=== PATIENT | male | born 1945 | race Caucasian/White ===

== ENCOUNTER 2018-08-18 19:40 | Outpatient (REF) | payer BC, SELFPAY ==
[2018-08-18 20:09] LABS: Anion Gap 9.2 mmol/L (3-11); BUN 14 mg/dL (7-18); CO2 29.8 mmol/L (21.0-32.0); CREATININE 1.19 mg/dL (0.70-1.30); Calcium 9.2 mg/dL (8.5-10.1); Chloride 102 mmol/L (98-107); Glucose 100 mg/dL (70-100); Potassium 3.6 mmol/L (3.5-5.1); Sodium 141 mmol/L (136-145)
== END 2018-08-18 20:00 ==
LOC: NCHCN 19:40
PROVIDERS: PCP Physician Assistant Medical; Visit Provider Physician Assistant Medical
DX: I10 Essential (primary) hypertension (principal)
CPT/HCPCS: 80048

== ENCOUNTER 2019-03-24 15:55 | Outpatient (REF) | payer BC, SELFPAY ==
[2019-03-24 19:05] LABS: BUN 12 mg/dL (7-18); Calcium 8.7 mg/dL (8.5-10.1); Chloride 101 mmol/L (98-107); Estimated GFR 59.68 (mL/min/1.73m2); Glucose 101 mg/dL (70-100); Potassium 3.6 mmol/L (3.5-5.1); Sodium 140 mmol/L (136-145); TSH 3.47 uIU/mL (0.36-3.74)
== END 2019-03-24 16:15 ==
LOC: NCHCN 15:55
PROVIDERS: PCP Physician Assistant Medical; Visit Provider Nurse Practitioner Family
DX: R42 Dizziness and giddiness (principal)
CPT/HCPCS: 80048; 84443

== ENCOUNTER 2021-01-04 20:34 | Outpatient (REF) | payer MEDICARE, BC, SELFPAY ==
[2021-01-04 20:33] LABS: ALT 50 U/L (16-63); AST 26 U/L (15-37); Albumin 4.5 g/dL (3.4-5.0); Alkaline Phosphatase 87 U/L (46-116); Anion Gap 9.2 mmol/L (3-11); BUN 21 mg/dL (7-18); Bilirubin, Total 1.2 mg/dL (0.2-1.0); CO2 30.8 mmol/L (21.0-32.0); CREATININE 1.3 mg/dL (0.70-1.30); Calcium 9.2 mg/dL (8.5-10.1); Calculated LDL 58 mg/dL (<100); Chloride 101 mmol/L (98-107); Cholesterol 150 mg/dL (<200); Estimated GFR 54.11 (mL/min/1.73m2); Glucose 92 mg/dL (74-106); HDL Cholesterol 63 mg/dL (40-60); Potassium 3.7 mmol/L (3.5-5.1); Sodium 141 mmol/L (136-145); Triglyceride 147 mg/dL (<150)
== END 2021-01-04 20:35 | disposition home or self-care (01) ==
LOC: NCHCN 20:34
PROVIDERS: PCP Physician Assistant Medical; Visit Provider Nurse Practitioner Family
DX: E78.5 Hyperlipidemia, unspecified (principal); I10 Essential (primary) hypertension
CPT/HCPCS: 80053; 80061

== ENCOUNTER 2022-01-02 09:08 | Outpatient (REF) | payer MEDICARE, SELFPAY ==
[2022-01-02 20:26] LABS: ALT 44 U/L (16-63); AST 28 U/L (15-37); Albumin 4.4 g/dL (3.4-5.0); Alkaline Phosphatase 89 U/L (46-116); Anion Gap 8.6 mmol/L (3-11); BUN 15 mg/dL (7-18); CO2 30.4 mmol/L (21.0-32.0); CREATININE 1.2 mg/dL (0.70-1.30); Calcium 8.9 mg/dL (8.5-10.1); Chloride 102 mmol/L (98-107); Estimated GFR 59.18 (mL/min/1.73m2); Glucose 99 mg/dL (74-106); Potassium 3.6 mmol/L (3.5-5.1); Sodium 141 mmol/L (136-145); Total Protein 7.6 g/dL (6.4-8.2)
[2022-01-04 08:59] LABS: Hepatitis C Ab w Rflx HCV PCR Negative (Negative)
== END 2022-01-02 09:09 | disposition home or self-care (01) ==
LOC: NCHCN 09:08
PROVIDERS: PCP Physician Assistant Medical; Visit Provider Nurse Practitioner Family
DX: I10 Essential (primary) hypertension (principal); E78.5 Hyperlipidemia, unspecified; Z11.59 Encounter for screening for other viral diseases
CPT/HCPCS: 80053; 86803

== ENCOUNTER 2023-05-20 17:54 | Outpatient (REF) | payer MEDICARE, SELFPAY ==
[2023-05-20 19:25] LABS: ALT 40 U/L (16-63); AST 30 U/L (15-37); Albumin 4.4 g/dL (3.4-5.0); Alkaline Phosphatase 94 U/L (46-116); Anion Gap 7.4 mmol/L (3-11); BUN 23 mg/dL (7-18); Bilirubin, Total 1.2 mg/dL (0.2-1.0); CO2 31.6 mmol/L (21.0-32.0); CREATININE 1.3 mg/dL (0.70-1.30); Calcium 9.9 mg/dL (8.5-10.1); Calculated LDL 87 mg/dL (<100); Chloride 102 mmol/L (98-107); Cholesterol 177 mg/dL (<200); Estimated GFR 57.29 (mL/min/1.73m2); Glucose 110 mg/dL (74-106); HDL Cholesterol 65 mg/dL (40-60); Potassium 4.8 mmol/L (3.5-5.1); Sodium 141 mmol/L (136-145); Total Protein 8.5 g/dL (6.4-8.2); Triglyceride 125 mg/dL (<150)
== END 2023-05-20 17:55 | disposition home or self-care (01) ==
LOC: NCHCN 17:54
PROVIDERS: PCP Physician Assistant Medical; Visit Provider Nurse Practitioner Family
DX: E78.5 Hyperlipidemia, unspecified (principal); I10 Essential (primary) hypertension
CPT/HCPCS: 80053; 80061

== ENCOUNTER 2023-08-05 13:58 | Outpatient (REF) | payer MEDICARE, SELFPAY ==
[2023-08-05 19:16] LABS: Hemoglobin A1C 5.4 % (<5.7)
[2023-08-05 19:20] LABS: ALT 49 U/L (16-63); AST 32 U/L (15-37); Albumin 4.5 g/dL (3.4-5.0); Alkaline Phosphatase 81 U/L (46-116); Anion Gap 9.9 mmol/L (3-11); BUN 18 mg/dL (7-18); Bilirubin, Total 1.1 mg/dL (0.2-1.0); CO2 30.1 mmol/L (21.0-32.0); CREATININE 1.2 mg/dL (0.70-1.30); Calcium 9.9 mg/dL (8.5-10.1); Chloride 100 mmol/L (98-107); Estimated GFR 63.07 (mL/min/1.73m2); Glucose 95 mg/dL (74-106); Potassium 3.7 mmol/L (3.5-5.1); Sodium 140 mmol/L (136-145); Total Protein 8.6 g/dL (6.4-8.2)
[2023-08-05 19:35] LABS: Bilirubin, Direct 0.2 mg/dL (0.0-0.2)
== END 2023-08-05 13:59 | disposition home or self-care (01) ==
LOC: NCHCN 13:58
PROVIDERS: PCP Physician Assistant Medical; Visit Provider Nurse Practitioner Family
DX: R74.8 Abnormal levels of other serum enzymes (principal); R73.9 Hyperglycemia, unspecified
CPT/HCPCS: 80048; 80076; 83036

== ENCOUNTER 2023-08-08 10:34 | Outpatient (REF) | payer MEDICARE, SELFPAY ==
[2023-08-08 18:45] LABS: HCT 49.8 % (40.0-50.0); HGB 16.3 g/dL (13.5-17.5); MCH 30.5 pg (27.0-33.0); MCHC 32.7 % (32.0-36.0); MCV 93 fL (80-95); MPV 10.7 fL (8.0-11.0); Platelet Count 239 10^3/uL (130-400); RBC 5.35 10^6/uL (4.36-5.78); RDW 12.7 % (11.8-14.1); WBC 7.37 10^3/uL (4.4-10.8)
[2023-08-12 13:43] LABS: Albumin 56.6 % (55.8-66.1); Albumin g/dL 4.8 g/dL (3.6-5.2); Total Protein 8.4 g/dL (6.3-8.2)
== END 2023-08-08 10:35 | disposition home or self-care (01) ==
LOC: NCHCN 10:34
PROVIDERS: Nurse Practitioner Family; PCP Physician Assistant Medical; Visit Provider Internal Medicine
DX: R74.8 Abnormal levels of other serum enzymes (principal)
CPT/HCPCS: 85027; 84165

== ENCOUNTER 2024-07-07 08:44 | Outpatient (REF) | payer MEDICARE, SELFPAY ==
--- OUTSIDE RECORDS SUMMARY | 2024-07-07 08:47 | XMS_ITS | Encounter Summary ---
Author Organization [facility] Address [address] [place] [address] Care Team Providers Care Parking Lot Signaler Name Role Phone Joceline Vale MD Primary Care Provider [phone] Encounter Details Date Type Department Care Team (Late st Contact Info) Description 08/09/2023 Lab Requisition [facility] Pathology & Laboratory Medicine - [address] [id number] Outr Resulting Lab, Provider Social History Tobacco Use Types Packs/Day Years Used Date Smoking Tobacco: Never Assessed Sex and Gender Information Value Date Recorded Sex Assigned at Not on file Legal Sex Male 17:31 EST Gender Identity Not on file Sexual Orientation Not on file documented as of this encounter Plan of Treatment Not on file documented as of this encounter Procedures Procedure Name Priority Date/Time Associated Diagnosis Comments SPEP, INCLUDES QUANTITATION OF MONOCLONAL SPIKE PERFORMABLE Today 08/08/2023 8:08 EST SPEP, INCLUDES QUANTITATION OF MONOCLONAL SPIKE Routine 08/08/2023 8:08 EST PROTEIN, TOTAL Today 08/08/2023 8:08 EST documented in this encounter Results * (ABNORMAL) SPEP, INCLUDES QUANTITATION OF MONOCLONAL SPIKE PERFORMABLE (08/08/2023 8:08 EST) Albumin % 56.6 55.8 - 66.1 % 08/12/2023 13:[address] [facility] Albumin g/dL 4.8 3.6 - 5.2 g/dL 08/12/2023 13:38 [facility] Alpha-1 % 4.2 2.9 - 4.9 % 08/12/2023 13:38 [facility] Alpha-1 g/dL 0.40 0.15 - 0.40 g/dL 08/12/2023 13:38 [facility] Alpha-2 % 11.5 7.1 - 11.8 % 08/12/2023 13:38 [facility] Alpha-2 g/dL 1.00 0.50 - 1.00 g/dL 08/12/2023 13:38 [facility] Beta % 16.6(H) 8.4 - 13.1 % 08/12/2023 13:38 [facility] Beta g/dL 1.40(H) 0.60 - 1.20 g/dL 08/12/2023 13:38 [facility] Gamma % 11.1 11.1 - 18.8 % 08/12/2023 13:38 [facility] Gamma g/dL 0.90 0.60 - 1.60 g/dL 08/12/2023 13:38 [facility] SPEP Comment No apparent monoclonal protein seen on serum electrophoresis 08/12/2023 13:38 [facility] Comment:See scanned/suppleme ntary report. Total Protein 8.4(H) 6.3 - 8.2 g/dL 08/12/2023 13:38 [facility] Blood VENOUS BLOOD / Unknown 08/08/2023 8:08 EST 08/09/2023 17:42 EST us Provider Outr Resulting Lab CHEMISTRY & BLOOD GA S ORDERABLES Final Result [facility] [address] [place] [address] * PROTEIN, TOTAL (08/08/2023 8:08 EST) Blood VENOUS BLOOD / Unknown 08/08/2023 8:08 EST 08/09/2023 17:42 EST us Provider Outr Resulting Lab CHEMISTRY & BLOOD GA S ORDERABLES Final Result [facility] [address] [place] [address] documented in this encounter Visit Diagnoses Not on filedocumented in this encounter Care Teams Parking Lot Signaler Relationship Specialty Start Date End Date Joceline Vale MD PCP - General 07/07/15 documented as of this encounter
--- OUTSIDE RECORDS SUMMARY | 2024-07-07 08:47 | XMS_ITS | Clinical Summary ---
Author Organization [facility] Address [facility] [place] [address] Care Team Providers Care Digital Sales Manager Name Role Phone Jim Eden MD Primary Care Provider [phone] Allergies No known active allergies Encounters Date Type Department Care Team Description 06/24/2024 4:50 PM EST Telehealth [place] [address] Telehealth, Neurology 06/24/2024 3:25 PM EST Ancillary Procedure Radiology Library at [facility] [place] [address] Jim Eden MD 06/24/2024 Interpretation Only Radiology [facility] at [facility] [place] [address] Jim Eden MD 06/23/2024 9:45 PM EST Ancillary Procedure Radiology [facility] at [facility] [place] [address] Jim Eden MD 06/23/2024 9:40 PM EST Ancillary Procedure Radiology Library [place] [facility] [place] [address] Jim Eden MD 06/23/2024 7:35 PM EST Telehealth [place] [address] Telehealth, Neurology from Last 3 Months Social History Tobacco Use Types Packs/Day Years Used Date Smoking Tobacco: Never Assessed Sex and Gender Information Value Date Recorded Sex Assigned at Not on file Gender Identity Not on file Sexual Orientation Not on file Plan of Treatment Health Maintenance Due Date Last Done Comments Hepatitis C Screening 12/07/1965 Tetanus/Diphtheria/Pertussis Vaccines (1 - Tdap) 12/07/1966 Zoster vaccine (1 of 2) 12/07/1997 Advance Directive 12/07/2002 Pneumoccocal Vaccine: 65+ (1 of 1 - PCV) 12/07/2012 RSV Vaccine (1 - 1-dose 75+ series) 12/07/2022 Covid-19 Vaccine (3 - season) 2024, 05/23/2022 Influenza (Flu) vaccine (1 o f 1 - Influenza standard series) 03/22/2024 Procedures Procedure Name Priority Date/Time Associated Diagnosis Comments FILM LIBRARY STORAGE ONLY MR HEAD Routine 06/24/2024 3:25 PM EST FILM LIBRARY STORAGE ONLY CT HEAD AND SPINE Routine 06/23/2024 9:40 PM EST FILM LIBRARY STORAGE ONLY CT HEAD Routine 06/23/2024 9:39 PM EST from Last 3 Months Results * Film Library- Storage Only MR Head (06/24/2024 3:25 PM EST) 06/28/2024 1:56 AM EST Narrative [facility] - 06/28/2024 1:56 AM EST This exam is auto-finalizing. It's purpose is for storage only. Jim Eden MD [facility] FILM LIBRARY ORD ERABLES Performing Organization Address [facility] de Phone Number [place], [place] * Film Library- Storage Only CT Head And Spine (06/23/2024 9:40 PM EST) Narrative [facility] - 06/23/2024 9:40 PM EST This exam is auto-finalizing. It's purpose is for storage only. Jim Eden MD [facility] FILM LIBRARY ORD ERABLES Performing Organization Address [facility] de Phone Number [place], [place] * Film Library- Storage Only CT Head (06/23/2024 9:39 PM EST) Narrative [facility] - 06/23/2024 9:39 PM EST This exam is auto-finalizing. It's purpose is for storage only. Jim Eden MD IMG FILM LIBRARY ORD ERABLES [facility] [place], [place] from Last 3 Months Care Teams Digital Sales Manager Relationship Specialty Start Date End Date Jim Eden MD [address] [address] PCP - General 06/13/10
--- OUTSIDE RECORDS SUMMARY | 2024-07-07 08:47 | XMS_ITS | Encounter Summary ---
Author Organization [facility] [place] [address] Care Team Providers Care Anodiser Name Role Phone Jim Eden MD Primary Care Provider [phone] Encounter Details Date Type Department Care Team (Late st Contact Info) Description 06/23/2024 7:35 PM EST Telehealth [place] [id number] Telehealth, Neurology None Social History Tobacco Use Types Packs/Day Years Used Date Smoking Tobacco: Never Assessed Sex and Gender Information Value Date Recorded Sex Assigned at Not on file Gender Identity Not on file Sexual Orientation Not on file documented as of this encounter Miscellaneous Notes * Consult Note - Rajwinder Maldonado MD - 06/23/2024 7:35 PM EST [facility] EMERGENT TELENEUROLOGY CONSULT NOTE - phone only consultation Date 06/23/24 Patient: Dusty Barragan : 1945 Gender: male VISIT Requesting Location: [facility] ([facility] Requesting Physician: Dr. Disla Diagnosis/Reason for Consult: AIS TLKW >24 hours (Note: not a tPA or thrombectomy candidate) Arrival Date: 06/23/2024 Arrival Time: 4:37 PM Consult Request Time: 5:40 PM Start Time of Video Consult: Phone call started 5:45 PM Time Last Known Well: 3 days ago PROVIDER History: 78-year-old reportedly healthy man with no vascular risk factor who presents to the emergency room reporting persistent vertigo and dizziness over the past 48 hours that started gradually are triggered with head movement and affecting his balance. He reports improvement of the symptoms when he stays still without movement. He denies severe nausea or vomiting. He was given meclizine earlier this morning by a friend but is unsure if it helped him. At the emergency room head thrust shows overshooting of the eyes to the right when turning the head to the left pointing towards left inner ear pathology however he also had vertical up beating rotational nystagmus. His vital signs were stab le. 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 Past Medical History: No past medical history on file. Current Medications: No current outpatient medications on file. Allergies: No Known Allergies Neurologic Social History: Are you a current smoker or have you ever smoked: N/A Do you consume alcohol: N/A Vitals: Pulse: N/A Blood pressure: N/A NIH STROKE SCALE reportedly 0, phone only consultation Additional Neurologic Examination Findings: Phone only consultation but patient had left head thrust positive test with vertical up beating nystagmus. Radiology Imaging Imaging/Results: Head CT scan showed no acute abnormality. 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 Labs: Glucose: N/A PT/INR: N/A Platelets: N/A CLINICAL IMPRESSION/DIAGNOSIS: Patient's presentation is concerning for pontine or cerebellar stroke specially with a gradually worsening symptoms, absence of severe nausea, and vertical up beating rotational nystagmus. The fact that the vertigo improved when patient avoids movement argues towards central etiology versus peripheral in cases such as vestibular neuritis. It seems that the patient responded to some supportive treatment today and head CT scan showed no acute abnormality. 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 RECOMMENDATIONS/PLAN: Pending brain MRI without contrast. Load with aspirin 325 mg p.o. today awaiting for the results of the MRI. OBSERVATION/ADMISSION/TRANSFER: Admission for stroke workup and management Rajwinder Maldonado MD [facility] Tele[facility]urology documented in this encounter Plan of Treatment Not on file documented as of this encounter Visit Diagnoses Not on filedocumented in this encounter Care Teams Anodiser Relationship Specialty Start Date End Date Jim Eden MD [address] [place] [id number] PCP - General 06/13/10 documented as of this encounter
--- OUTSIDE RECORDS SUMMARY | 2024-07-07 08:47 | XMS_ITS | Encounter Summary ---
Author Organization [facility] Address [address] [place] [address] Care Team Providers Care Mobile Home Set Up Person Name Role Phone Unknown, Provider MD Primary Care Provider Unava ilable Encounter Details Date Type Department Care Team (Late st Contact Info) Description 07/04/2015 Results Only [facility] [phone] Gama Gamble MD [address] [place] [address] Social History Tobacco Use Types Packs/Day Years [...] Procedure Name Priority Date/Time Associated Diagnosis Comments SURGICAL PATHOLOGY Routine 07/04/2015 9:27 EST documented in this encounter Results * SURGICAL PATHOLOGY (07/04/2015 9:27 EST) Pathology Report: SURGICAL PATHOLOGY REPORT Reports generated via electronic interface contain original data; however they are lacking the format of the original report. Caution should be taken when reading/interpret ing unformatted reports. Name: ? YUNG DUSTY ? Accession #: ? [id number] ? : ? 1945 (Age: 69) ??M ? Collect Date: ? 07/04/2015 ? Location: ? [facility] ? Receive Date: ? 07/05/2015 ? Provider: GAMA GAMBLE MD Copy to: DENISE FOSTER MD ? Final Pathologic Diagnosis: GALLBLADDER, CHOLECYSTECTOMY: - ??Acute on chronic cholecystitis. See comment. - ??Scant cauterized benign liver bed - ??Cholelithiasis. 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 Document reviewed and electronically signed by: ANA ROSA PURDY MD Report ??Date: 07/10/2015 13:18 By the signature above, the attending physician certifies that he/she has personally conducted a gross and/or microscopic examination of the described specimens and rendered or confirmed the above diagnosis. Specimen(s) Received: Gallbladder Clinical History: Not listed Gross Description: ? Received in formalin labelled with proper patient identification (initials B, J) and gallbladder is a previously dissected gallbladder (10.8 x 3.8 x 2.9 cm) with a segment of cystic duct (0.5 cm in length x 0.2 cm in diameter). ? The serosa is lancaster-purple and focally hemorrhagic. The mucosa is lancaster-purple, denuded, firm, and focally hemorrhagic. The wall averages 0.4 cm in thickness. The cystic duct lumen is not patent. The cystic duct margin is inked blue. A single yellow-brown, smooth, ovoid cholelith (3.5 x 2.4 x 2.1 cm) is present. ? Two videotape sales representative sections and the inked en face cystic duct margin are submitted in 1. Dr. Castillo 07/05/2015 2:09 PM End of Report [facility] 07/04/2015 9:27 EST 07/05/2015 9:27 EST us Gama Gamble MD PATHOLOGY ORDERABLES Final Result [facility] [address] [place] [address] documented in this encounter Visit Diagnoses Not on filedocumented in this encounter Care Teams Mobile Home Set Up Person Relationship Specialty Start Date End Date Unknown, Provider, PCP - General 07/04/15 07/06/15 documented as of this encounter
--- OUTSIDE RECORDS SUMMARY | 2024-07-07 08:47 | XMS_ITS | Referral Summary ---
Author Organization [facility] Address [address] [place] [address] Care Team Providers Care Java Spring Developer Name Role Phone Joceline Vale MD Primary Care Provider [phone] Social History Tobacco Use Types Packs/Day Years Used Date Smoking Tobacco: Never Assessed Sex and Gender Information Value Date Recorded Sex Assigned at Not on file Legal Sex Male 17:31 EST Gender Identity Not on file Sexual Orientation Not on file Plan of Treatment Not on file Procedures Procedure Name Priority Date/Time Associated Diagnosis Comments HEPATITIS C AB W REFLEX TO HCV RNA BY PCR Routine 01/02/2022 8:45 EDT from Last 3 Months or Most Recently Relevant to Health Maintenance Results * HEPATITIS C AB W REFLEX TO HCV RNA BY PCR (01/02/2022 8:45 EDT) Hep C Antibody Negative Negative 01/04/2022 8:53 EDT [facility] Blood VENOUS BLOOD / Unknown 01/02/2022 8:45 EDT 01/03/2022 16:24 EDT us Provider Outr Resulting Lab CHEMISTRY & BLOOD GA S ORDERABLES Final Result [facility] [address] [place] [address] from Last 3 Months or Most Recently Relevant to Health Maintenance Care Teams Java Spring Developer Relationship Specialty Start Date End Date Joceline Vale MD PCP - General 07/07/15
--- OUTSIDE RECORDS SUMMARY | 2024-07-07 08:47 | XMS_ITS | Clinical Summary ---
Author Organization [facility] Address [address] [place] [address] Care Team Providers Care Dictating Transcribing Machine Servicer Name Role Phone Joceline Vale MD Primary Care Provider +1- [phone] Social History Tobacco Use Types Packs/Day Years Used Date Smoking Tobacco: Never Assessed Sex and Gender Information Value Date Recorded Sex Assigned at Not on file Legal Sex Male 17:31 EST Gender Identity Not on file Sexual Orientation Not on file Plan of Treatment Health Maintenance Due Date Last Done Comments Fall Risk Screening 12/07/2012 RSV Immunization ( o r 60+ Years) (1 - 1-dose 75+ series) 12/07/2022 COVID-19 Vaccine ( season) 2024 Hepatitis C Screen Completed 01/02/2022 Procedures Procedure Name Priority Date/Time Associated Diagnosis Comments HEPATITIS C AB W REFLEX TO HCV RNA BY PCR Routine 01/02/2022 8:45 EDT from Last 3 Months or Most Recently Relevant to Health Maintenance Results * HEPATITIS C AB W REFLEX TO HCV RNA BY PCR (01/02/2022 8:45 EDT) Hep C Antibody Negative Negative 01/04/2022 8:53 EDT [facility] Blood VENOUS BLOOD / Unknown 01/02/2022 8:45 EDT 01/03/2022 16:24 EDT us Provider Outr Resulting Lab CHEMISTRY & BLOOD GA S ORDERABLES Final Result [facility] [address] [place] [id number] from Last 3 Months or Most Recently Relevant to Health Maintenance Care Teams Dictating Transcribing Machine Servicer Relationship Specialty Start Date End Date Joceline Vale MD PCP - General 07/07/15
--- OUTSIDE RECORDS SUMMARY | 2024-07-07 08:47 | XMS_ITS | Encounter Summary ---
Author Organization [facility] [place] [address] Care Team Providers Care Engineering Equipment Operator Name Role Phone Jim Eden MD Primary Care Provider Encounter Details Date Type Department Care Team (Late st Contact Info) Description 06/24/2024 3:25 PM EST Ancillary Procedure Radiology Library at [facility] [place] [id number] Jim Eden MD [address] [place] [id number] Social History Tobacco Use Types Packs/Day Years [...] MR HEAD Routine 06/24/2024 3:25 PM EST documented in this encounter Results * Film Library- Storage Only MR Head (06/24/2024 3:25 PM EST) 06/28/2024 1:56 AM EST Narrative [facility] 06/28/2024 1:56 AM EST This exam is auto-finalizing. It's purpose is for storage only. Jim Eden MD IMG FILM LIBRARY ORD ERABLES [facility] [place] documented in this encounter Visit Diagnoses Not on filedocumented in this encounter Care Teams Engineering Equipment Operator Relationship Specialty Start Date End Date Jim Eden MD [address] [place] [id number] PCP - General 06/13/10 documented as of this encounter
--- OUTSIDE RECORDS SUMMARY | 2024-07-07 08:47 | XMS_ITS | Data Portability ---
Author Organization [facility] Address [address] [place] [address] Care Team Providers Care Manager Home Healthcare Name Role Phone MIRNA SAENZ Primary Care Provider Assessment No assessment recorded. Plan of Treatment Reminders Order Date Submit Date Provider Last Modified By Organization Details Last Modified Time Details Appointments hospital follow up 2023 08:00A M MIRNA SAENZ Not available Not available Not available Lab BMP, serum or plasma [address] [facility] (Registration ), [address] [place] [address] [place], [address], 02/10/2024 11:45:43 HbA1c (hemoglob in A1c), blood [address] [facility] (Registration ), [address] [place] [address] [place], [address], 02/10/2024 11:46:04 hepatic function panel, serum 2023 024 DAILY [facility] (Registration ), [address] [place] [address] [place], [address], 08/05/2023 19:39:20 venipunct ure 2023 024 [email or web address] [facility] (Registration ), [address] [place] [address] [place], [address], 08/08/2023 13:28:34 Referral None recorded. Procedures None recorded. Surgeries None recorded. Imaging None recorded. Medication Orders tritex ne 37.5 mg-hydroc hlorothia zide 25 mg capsule 2023 024 [email or web address] [facility], [place], [address], 08/05/2023 10:07:51 amlodipin e 5 mg tablet 2023 024 DAILY [address], [address] [place], [address], 08/05/2023 10:07:54 simvastat in 20 mg tablet 2023 024 [email or web address] [address], [address] [facility], [place], [address], 06/25/2024 12:23:09 Patient TargetsNo targets recorded. Patient Instructions Encounter Date Encounter Id Patient Instructions Last Modified By Organization Details Last Modified Time 08/05/2023 [id number] Increase your Amlodipine to 5mg once daily, ok to take two 2.5 mg tablets at the same time until you get your new prescription. Goal bp is about 120/80. If your blood pressure continues to be elevated, please let me know I will send you a letter with the results of your lab work Not available 08/05/2023 09:51:31 08/08/2023 [id number] specimen collection & handling* [email or web address] Not available 08/08/2023 13:28:34 02/11/2024 [id number] Continue current medications, your blood pressure is well controlled. Follow up 6 months, sooner if needed Flu shot and COVID booster this fall. Lab work at your next visit Not available 02/11/2024 08:26:19 Reason for Referral Neurologist Referral for His tory of cerebrovascular accident Recent CVA, Dr. Maldonado of [facility] consulted from ER at [facility]. 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 Please make recommendations Referring Physician: Mirna Saenz, Family Medicine, Encounter Date: 07/07/2024 Results Created Date Observation Date Name Description Value Unit Range Abnormal Flag Note LastModifiedBy Organization Detail LastModifiedTime 08/05/19 24 08/05/2023 HEMOG LOBIN A1C hemoglobin A1C 5.4 % <5.7 Refer ence Range s <5.7 Justine l 5.7-6 .4% Predi abete s 6.5% or great er Diagn ostic for diabe haily (if confi rmed) Refer ences : 1. Ameri can Diabe haily [facility] iatio n. Clas sific ation and Diagn osis of Diabe haily. [facility]abe haily [facility] 2019 Jul; 2(Sup pleme nt 1):S1 3-s28 . Not Available [address] [place], [address] 08/05/2023 19:20:14 08/05/19 24 08/05/2023 LIVER PANEL total protein 8.6 g/dL 6.4-8. 2 high Not Available [address] [place], [address] 08/05/2023 19:39:20 08/05/19 24 08/05/2023 LIVER PANEL albumin 4.5 g/dL 3.4-5. 0 normal Not Available [address] [place], [address] 08/05/2023 19:39:20 08/05/19 24 08/05/2023 LIVER PANEL bilirubin, total 1.1 mg/dL 0.2-1. 0 high Not Available [address] [place], [address] 08/05/2023 19:39:20 08/05/19 24 08/05/2023 LIVER PANEL alk phos 81 U/L 46-116 normal Not Available [address] [place], [address] 08/05/2023 19:39:20 08/05/19 24 08/05/2023 LIVER PANEL AST 32 U/L 15-37 normal Not Available Pierre whittington [address] [place], [address] 08/05/2023 19:39:20 08/05/19 24 08/05/2023 LIVER PANEL ALT 49 U/L 16-63 normal Not Available [place] [address] [place], [address] 08/05/2023 19:39:20 08/05/19 24 08/05/2023 LIVER PANEL bilirubin, conjugated 0.2 mg/dL 0.0-0. 2 normal Not Available [address] [place], [address] 08/05/2023 19:39:20 08/05/19 24 08/05/2023 BASIC METAB OLIC PANEL calcium 9.9 mg/dL 8.5-10 .1 normal Not Available [address] [place], [address] 08/05/2023 19:39:20 08/05/19 24 08/05/2023 BASIC METAB OLIC PANEL glucose 95 mg/dL 74-106 normal Not Available Pierre wh[place] [address] [place], [address] 08/05/2023 19:39:20 08/05/19 24 08/05/2023 BASIC METAB OLIC PANEL BUN 18 mg/dL 7-18 normal Not Available Pierre wh[place] [address] [place], [address] 08/05/2023 19:39:20 08/05/19 24 08/05/2023 BASIC METAB OLIC PANEL creatinine 1.2 mg/dL 0.70-1 .30 normal Not Available [address] [place], [address] 08/05/2023 19:39:20 08/05/19 24 08/05/2023 BASIC METAB OLIC PANEL estimated GFR 63.07 mL/min /1.73m 2 The eGFR is calcu lated from a serum creat inine using the CKD-E PI 2020 equat ion. Other varia bles requi red for the equat ion are gende r and age; this equat ion does not inclu de a race coeff icien t. This equat ion has simil ar overa ll perfo rmanc e to previ ous equat ions excep t value s may diffe r, in parti cular , in patie nts with highe r value s of eGFR and young er-ag ed adult s. Not Available [address] [place], [address] 08/05/2023 19:39:20 08/05/19 24 08/05/2023 BASIC METAB OLIC PANEL sodium 140 mmol/ L 136-14 5 normal Not Available [address] [place], [address] 08/05/2023 19:39:20 08/05/19 24 08/05/2023 BASIC METAB OLIC PANEL potassium 3.7 mmol/ L 3.5-5. 1 normal Not Available [address] [place], [address] 08/05/2023 19:39:20 08/05/19 24 08/05/2023 BASIC METAB OLIC PANEL chloride 100 mmol/ L 98-107 normal Not Available [address] [place], [address] 08/05/2023 19:39:20 08/05/19 24 08/05/2023 BASIC METAB OLIC PANEL CO2 30.1 mmol/ L 21.0-3 2.0 normal Not Available [address] [place], [address] 08/05/2023 19:39:20 08/05/19 24 08/05/2023 BASIC METAB OLIC PANEL anion gap 9.9 mmol/ L 3-11 normal Not Available [address] [place], [address] 08/05/2023 19:39:20 08/08/19 24 08/08/2023 COMPL ETE BLOOD COUNT NO DIFF WBC 7.37 10_3/ uL 4.4-10 .8 normal Not Available [address] [place], [address] 08/08/2023 18:49:19 08/08/19 24 08/08/2023 COMPL ETE BLOOD COUNT NO DIFF RBC 5.35 10_6/ uL 4.36-5 .78 normal Not Available [address] [place], [address] 08/08/2023 18:49:19 08/08/19 24 08/08/2023 COMPL ETE BLOOD COUNT NO DIFF HGB 16.3 g/dL 13.5-1 7.5 normal Not Available [address] [place], [address] 08/08/2023 18:49:19 08/08/19 24 08/08/2023 COMPL ETE BLOOD COUNT NO DIFF HCT 49.8 % 40.0-5 0.0 normal Not Available [address] [place], [address] 08/08/2023 18:49:19 08/08/19 24 08/08/2023 COMPL ETE BLOOD COUNT NO DIFF MCV 93 fL 80-95 normal Not Available Pierre whitting[place] [address] [place], [address] 08/08/2023 18:49:19 08/08/19 24 08/08/2023 COMPL ETE BLOOD COUNT NO DIFF MCH 30.5 pg 27.0-3 3.0 normal Not Available [address] [place], [address] 08/08/2023 18:49:19 08/08/19 24 08/08/2023 COMPL ETE BLOOD COUNT NO DIFF MCHC 32.7 % 32.0-3 6.0 normal Not Available [address] [place], [address] 08/08/2023 18:49:19 08/08/19 24 08/08/2023 COMPL ETE BLOOD COUNT NO DIFF RDW 12.7 % 11.8-1 4.1 normal Not Available [address] [place], [address] 08/08/2023 18:49:19 08/08/19 24 08/08/2023 COMPL ETE BLOOD COUNT NO DIFF platelet count 239 10_3/ uL 130-40 0 normal Not Available [address] [place], [address] 08/08/2023 18:49:19 08/08/19 24 08/08/2023 COMPL ETE BLOOD COUNT NO DIFF MPV 10.7 fL 8.0-11 .0 normal Not Available [address] [place], [address] 08/08/2023 18:49:19 08/08/19 24 08/12/2023 ELECT ROPHO RESIS , SERUM total protein 8.4 g/dL 6.3-8. 2 abnormal Not Available [address] [place], [address] 08/12/2023 16:49:11 08/08/19 24 08/12/2023 ELECT ROPHO RESIS , SERUM albumin 56.6 % 55.8-6 6.1 Not Available [address] [place], [address] 08/12/2023 16:49:11 08/08/19 24 08/12/2023 ELECT ROPHO RESIS , SERUM alpha 1 4.2 % 2.9-4. 9 Not Available [address] [place], [address] 08/12/2023 16:49:11 08/08/19 24 08/12/2023 ELECT ROPHO RESIS , SERUM alpha 2 11.5 % 7.1-11 .8 Not Available [address] [place], [address] 08/12/2023 16:49:11 08/08/19 24 08/12/2023 ELECT ROPHO RESIS , SERUM beta 16.6 % 8.4-13 .1 abnormal Not Available [address] [place], [address] 08/12/2023 16:49:11 08/08/19 24 08/12/2023 ELECT ROPHO RESIS , SERUM gamma 11.1 % 11.1-1 8.8 Not Available [address] [place], [address] 08/12/2023 16:49:11 08/08/19 24 08/12/2023 ELECT ROPHO RESIS , SERUM comment SEE BELOW RESUL T: No appar ent monoc lonal prote in seen on serum elect ropho resis See scann ed/chin pplem entar y repor t. Test perfo rmed or refer red by [facility] [address] [place] [address] Not Available [address] [place], [address] 08/12/2023 16:49:11 08/08/19 24 08/12/2023 ELECT ROPHO RESIS , SERUM albumin g/dL 4.8 g/dL 3.6-5. 2 Not Available [address] [place], [address] 08/12/2023 16:49:11 08/08/19 24 08/12/2023 ELECT ROPHO RESIS , SERUM alpha 1 g/dL 0.40 g/dL 0.15-0 .40 Not Available [address] [place], [address] 08/12/2023 16:49:11 08/08/19 24 08/12/2023 ELECT ROPHO RESIS , SERUM alpha 2 g/dL 1.00 g/dL 0.50-1 .00 Not Available [address] [place], [address] 08/12/2023 16:49:11 08/08/19 24 08/12/2023 ELECT ROPHO RESIS , SERUM beta g/dL 1.40 g/dL 0.60-1 .20 abnormal Not Available [address] [place], [address] 08/12/2023 16:49:11 08/08/19 24 08/12/2023 ELECT ROPHO RESIS , SERUM gamma g/dL 0.90 g/dL 0.60-1 .60 Not Available [address] [place], [address] 08/12/2023 16:49:11 08/08/19 24 08/08/2023 speci men colle ction & handl ing* Specimen collection and handling performed today: Yes Not Available [facility] [address] [place] [address] [address], [place], [address], 08/08/2023 08:11:00 06/23/20 24 06/23/2024 CT brain /head strok e donavan col PROCED URE INFORM ATION: Exam: CT Head Withou t Contra st Exam date and time: 024 6:51 PM Age: 78 years old Clinic al indica tion: Stroke -like sympto ms; Additi onal info: Ataxia TECHNI QUE: Imagin g protoc ol: Comput ed tomogr aphy of the head withou t contra st. Radiat ion optimi zation : All CT scans at this facili ty use at least one of these dose optimi zation techni ques: automa candida exposu re contro l; mA and/or kV adjust ment per patien t size (inclu manisha target ed exams where dose is matche d to clinic al indica tion); or iterat saw recons tructi on. Other techni que: STROKE PROTOC OL was implem ented. COMPAR SON: No releva nt prior studie s availa ble. FINDIN GS: Brain: No intrac ranial mass, mass effect or midlin e shift. No acute intrac ranial hemorr radha. No CT eviden ce of acute cortic al brain infarc t. Mild decrea sed attenu ation in perive ntricu lar/ce ntrum semiov familia white matter . Cerebr al ventri cles: Ventri cles, cister ns, and sulci are normal in size for age. Parana keily sinuse s: Imaged parana keily sinuse s are normal ly aerate d. Mastoi d air cells: Mastoi d air cells are normal ly aerate d. Audito ry system : Middle ear spaces and ossicu lar chains have normal aerati on and appear ance. Orbita l caviti es: Imaged orbits and ocular globes are unrema rkable . Bones: No calvar ial fractu re or destru ctive proces s. Soft tissue s: No focal subcut aneous soft tissue swelli ng. Vascul ature: No concer urban asymme tric abnorm al MCA densit y. IMPRES ANTOINE: No acute or concer urban focal intrac ranial abnorm ality. ASSESS MENT: ASPECT S (Juan Pablo ta Stroke Progra m Early CT Score) is 10. Report signed by: Tamara loyd On 2023 19:14: 52 INTERFACE [facility] [address], [place], [address], 06/23/2024 19:16:41 06/23/20 24 06/23/2024 CT angio brain and neck ABNORM AL FINDIN G PROCED URE INFORM ATION: Exam: CTA Head With Contra st, Arteri ograph y Exam date and time: 6:55 PM Age: 78 years old Clinic al indica tion: Stroke -like sympto ms; Additi onal info: Ataxia TECHNI QUE: Imagin g protoc ol: Comput ed tomogr aphic angiog nidhi of the head with contra st. Exam focuse d on the arteri es. 3D render ing (Not superv ised by radiol ogist) : MIP and/or 3D recons tructe d images were create d by the techno logist . Radiat ion optimi zation : All CT scans at this facili ty use at least one of these dose optimi zation techni ques: automa candida exposu re contro l; mA and/or kV adjust ment per patien t size (inclu manisha target ed exams where dose is matche d to clinic al indica tion); or iterat saw recons tructi on. Contra st materi al: OMNIPA QUE 350; Contra st volume : 100 ml; Contra st route: INTRAV ENOUS (IV); COMPAR SON: CT HEAD STROKE PROTOC OL 6:51 PM FINDIN GS: ANTERI OR CIRCUL ATION: Right risk intern al caroti d artery : Intrac ranial segmen t is patent with no signif icant stenos is. No aneury sm. Right middle cerebr al artery : No occlus ion or signif icant stenos is. No aneury sm. Right anteri or cerebr al artery : No occlus ion or signif icant stenos is. No aneury sm. Left risk intern al caroti d artery : Intrac ranial segmen t is patent with no signif icant stenos is. No aneury sm. Left middle cerebr al artery : No occlus ion or signif icant stenos is. No aneury sm. Left anteri or cerebr al artery : Diminu tive left A1 segmen t. Normal calibe r left DINAH is suppli ed predom inantl y by an anteri or commun icatin g artery No occlus ion or signif icant stenos is. No aneury sm. TALENT ACQUISITION CONSULTANT IOR CIRCUL ATION: Right verteb ral artery : V4 segmen t eccent jacqueline athero sclero tic plaque result s in certai nly milder than 50% lumina l calibe r narrow ing No occlus ion or signif icant stenos is. No aneury sm. Left verteb ral artery : No enhanc ement of the left verteb ral artery from its cervic al origin to the verteb robasi lar juncti on. Basila r artery : Normal lumina l calibe r and solely suppli ed by the right verteb ral artery No occlus ion or signif icant stenos is. No aneury sm. Right regional sales associate ior cerebr al artery : No occlus ion or signif icant stenos is. No aneury sm. Left regional sales associate ior cerebr al artery : No occlus ion or signif icant stenos is. No aneury sm. Brain: Ventri cles, cister ns and sulci are symmet jacqueline. No intrac ranial mass, mass effect , or midlin e shift. No acute intrac ranial hemorr radha. Osseou s Struct ures: Bony struct ures show no acute fractu re or destru ctive proces s. Soft tissue s: No focal extrac ranial soft tissue swelli ng. IMPRES ANTOINE: Age indete rminat e left verteb ral artery occlus ion from its cervic al origin to the verteb robasi lar juncti on, with the regional sales associate ior fossa struct ures suppli ed by the normal right verteb ral artery No other intrac ranial large vessel arteri al occlus saw or stenot ic lesion and no eviden ce of [place] aneury sm or dural sinus thromb osis. ASPECT S (Juan Pablo ta Stroke Progra m Early CT Score) is 10. ====== ====== ====== ====== = PROCED URE INFORM ATION: Exam: CTA Neck With Contra st Exam date and time: 024 6:55 PM Age: 78 years old Clinic al indica tion: Stroke -like sympto ms; Additi onal info: Ataxia TECHNI QUE: Imagin g protoc ol: Comput ed tomogr aphic angiog nidhi of the neck with contra st. Exam focuse d on the cervic al segmen ts of the vascul ature. 3D render ing (Not superv ised by radiol ogist) : MIP and/or 3D recons tructe d images were create d by the techno alphonse . Radiat ion optimi zation : All CT scans at this facili ty use at least one of these dose optimi zation techni ques: automa candida exposu re contro l; mA and/or kV adjust ment per patien t size (inclu manisha target ed exams where dose is matche d to clinic al indica tion); or iterat saw recons tructi on. Contra st materi al: OMNIPA QUE 350; Contra st volume : 100 ml; Contra st route: INTRAV ENOUS (IV); COMPAR SON: CT HEAD STROKE PROTOC OL 024 6:51 PM FINDIN GS: Right common caroti d artery : No hemody namica lly signif icant stenos is. No dissec tion or occlus ion. Right risk intern al caroti d artery : Minima l right caroti d bulb plaque with no lumina l calibe r narrow ing No hemody namica lly signif icant stenos is of the extrac ranial segmen t. No dissec tion or occlus ion. Right sales consultant insurance al caroti d artery : No occlus ion or hemody namica lly signif icant stenos is of the origin . Left common caroti d artery : No hemody namica lly signif icant stenos is. No dissec tion or occlus ion. Left risk intern al caroti d artery : Minima l eccent jacqueline left caroti d bulb and proxim al left ICA plaque . Neglig ible lumina l calibe r narrow ing. No hemody namica lly signif icant stenos is of the extrac ranial segmen t. No dissec tion or occlus ion. Left sales consultant insurance al caroti d artery : No occlus ion or hemody namica lly signif icant stenos is of the origin . Right verteb ral artery : No high-g rade stenos is. No dissec tion or occlus ion. Left verteb ral artery : Occlus ion/no n enhanc ement of the left verteb ral artery from its origin to the skull base, indete rminat e chroni city. Soft tissue s: Paraph arynge al and regional sales associate ior nasoph arynx soft tissue s are symmet jacqueline. Paroti d and minor saliva ry glands are normal . Floor of mouth and tongue base soft tissue s are symmet jacqueline. Epiglo ttis and upper airway struct ures appear normal . Thyroi d gland shows no asymme try or mass Lung Apices : Imaged lung apices show no acute abnorm ality or eviden ce of a apical mass. Centri lobula r emphys henry change s are presen t diffus chinyere Osseou s struct ures: Bony struct ures show no acute fractu re or destru ctive proces s. Multi- level cervic al degene rative disc and articu lar pillar arthro cate is presen t. Hyoid bone and laryng eal cartil age struct ures appear normal . IMPRES ANTOINE: Age indete rminat e comple te occlus ion of the left verteb ral artery from its cervic al origin to the skull base level No hemody namica lly signif icant lesion of the cervic al caroti d or right cervic al verteb ral arteri es. REFERE NCES: NASCET CRITER IA. The degree of stenos is in the cervic al segmen t of the risk intern al caroti d artery is based on NASCET criter ia. Normal is no stenos is. Mild is less than 50% stenos is. Modera te is 50-69% stenos is. Severe is 70% to 99% stenos is. Total occlus ion is no detect able patent lumen. Report signed by: Tamara loyd On 2023 19:21: [address], [place], [address], 07/07/2024 07:31:53 06/24/20 24 06/24/2024 xr chest 1 view PROCED URE INFORM ATION: Exam: XR Chest Exam date and time: 7:41 AM Age: 78 years old Clinic al indica tion: Wheezi ng; Wheezi ng; Additi onal info: Wheezi ng, cough, increa sed wbc TECHNI QUE: Imagin g protoc ol: Radiol ogic exam of the chest. Views: 1 view. COMPAR SON: CT CTA HEAD/N FELICIA W/ AND/OR WO CONT 6:55 PM FINDIN GS: Limita tions: Portab le techni que. Lungs: Lucenc y and attenu ation of the lung markin gs in the upper lung zones. No acute lung infilt rates. Pleura l spaces : Unrema rkable . No pleura l effusi on. No pneumo thorax . Heart/ Medias tinum: Unrema rkable . No cardio megaly . Vascul ature: Uncoil ing of the thorac ic aorta. Diaphr agm: Mild tentin g of the right hemidi aphrag m. Bones/ joints : Unrema rkable . IMPRES ANTOINE: COPD. Prior CT demons trates modera te centri lobula r emphys henry. Report signed by: Beata Huerta On 2023 09:12: [address], [place], [address], 06/24/2024 09:12:40 06/24/20 24 06/24/2024 MRI brain w/o contr ast ABNORM AL FINDIN G PROCED URE INFORM ATION: Exam: MR Head Withou t Contra st Exam date and time: 3:21 PM Age: 78 years old Clinic al indica tion: Stroke like sympto ms TECHNI QUE: Imagin g protoc ol: Magnet ic resona nce imagin g of the head withou t contra st. COMPAR SON: CT CTA HEAD/N FELICIA W/ AND/OR WO CONT 6:55 PM FINDIN GS: Brain: Puncta te focus of diffus ion hyperi ntensi ty along the left regional sales associate olater al medull a (serie s 3, image 39). Small chroni c right villarreal radiat a lacuna r infarc t. Mild nonspe cific T2/FLA IR hyperi ntensi ties of the perive ntricu lar and deep subcor tical white matter , most likely second carol to chroni c small vessel ischem ic change . No intrac ranial hemorr radha or extra- axial fluid collec tion. No eviden ce of mass effect . Cerebr al ventri cles: Promin ence of the ventri cles and sulci, likely attrib uted to parenc hymal volume loss. Bones: Unrema rkable . Parana keily sinuse s: Normal as visual ized. No acute sinusi tis. Mastoi d air cells: No mastoi d effusi on. Orbita l caviti es: Unrema rkable . Vascul ature: Absenc e of T2 flow void within the inferi or to mid intrac ranial left verteb ral artery , compat ible with occlus ion as demons trated on prior CTA. Soft tissue s: Unrema rkable . IMPRES ANTOINE: 1. Findin gs concer urban for tiny acute infarc t of the left regional sales associate olater al medull a. 2. Absenc e of T2 flow void within the inferi or to mid intrac ranial left verteb ral artery , compat ible with occlus ion as demons trated on prior CTA. 3. Chroni c findin gs, as above. Report signed by: Edin Bazan On 2023 16:29: [address], [place], [address], 07/07/2024 07:33:30 06/24/20 24 06/24/2024 MRI brain w/o contr ast ABNORM AL ROLF G Addend um keke d by Edin Bazan MD on 4:31:2 4 PM EST: THIS REPORT CONTAI NS FINDIN GS THAT MAY BE CRITIC AL TO PATIEN T CARE. The findin gs were verbal ly commun icated via teleph one confer ence with CASSANDRA LYLE at 4:31 PM EST on . The findin gs were acknow ledged and unders tood. Initia l report create d on 4:29:3 2 PM EST: ====== ====== ====== ====== ====== ====== ====== ====== ====== ====== ===== PROCED URE INFORM ATION: Exam: MR Head Withou t Contra st Exam date and time: 3:21 PM Age: 78 years old Clinic al indica tion: Stroke like sympto ms TECHNI QUE: Imagin g protoc ol: Magnet ic resona nce imagin g of the head withou t contra st. COMPAR SON: CT CTA HEAD/N FELICIA W/ AND/OR WO CONT 024 6:55 PM ROLF GS: Brain: Puncta te focus of diffus ion hyperi ntensi ty along the left regional sales associate olater al medull a (serie s 3, image 39). Small chroni c right villarreal radiat a lacuna r infarc t. Mild nonspe cific T2/FLA IR hyperi ntensi ties of the perive ntricu lar and deep subcor tical white matter , most likely second carol to chroni c small vessel ischem ic change . No intrac ranial hemorr radha or extra- axial fluid collec tion. No eviden ce of mass effect . Cerebr al ventri cles: Promin ence of the ventri cles and sulci, likely attrib uted to parenc hymal volume loss. Bones: Unrema rkable . Parana keily sinuse s: Normal as visual ized. No acute sinusi tis. Mastoi d air cells: No mastoi d effusi on. Orbita l caviti es: Unrema rkable . Vascul ature: Absenc e of T2 flow void within the inferi or to mid intrac ranial left verteb ral artery , compat ible with occlus ion as demons trated on prior CTA. Soft tissue s: Unrema rkable . IMPRES ANTOINE: 1. Findin gs concer urban for tiny acute infarc t of the left regional sales associate olater al medull a. 2. Absenc e of T2 flow void within the inferi or to mid intrac ranial left verteb ral artery , compat ible with occlus ion as demons trated on prior CTA. 3. Chroni c rolf gs, as above. Report signed by: Edin Bazan On 2023 16:31: [address], [place], [address], 06/24/2024 16:33:05 06/25/20 24 06/24/2024 trans -thor acic echoc ardio gram (TTE) (PROC ) No observ ation record ed. [email or web address] [facility] [address], [place], [address], 07/07/2024 07:34:41 Result Notes None recorded. Problems Name Problem SNOMED Code Status Onset Date Resolution Date Notes Provider Name and Address Organization Details Recorded Time History of cerebrov ascular accident 653762262 Active 2023 Tiny acute infarct of the left posterio r lateral medulla. Occlusio n of inferior to mid intracra geneva left vertebra l artery 4 JOEY BECKFORD [address], [place], [address] , [facility] 4 07:40:20 Hypokale annette 92610605 Active 2023 JOEY BECKFORD [address], [place], [address] , [facility] 4 08:28:56 Acute kidney injury 96838715 Active [address], [place], [address] , [facility] 4 08:29:10 Chronic obstruct saw pulmonar y disease 86237218 Active 2023 JOEY BECKFORD [address], [place], [address] , [facility] 4 08:29:24 Essentia l hyperten antoine 82195862 Active 200402/05/20 23 - Comments only - Mirna Saenz CONTROL SYSTEMS ENG - Slightly higher then last visit likely due to inadvert ent d/c of amlodipi ne. Our records show refills were sent, no cancella tion. 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 Problem Code: I10; Problem Code Type: ICD-10; Not Available [facility] 3 04:27:00 Hyperlip idemia 75387399 Active 201202/05/20 23 - Comments only - Mirna Saenz CONTROL SYSTEMS ENG - Unfortun ately, simvasta tin not refilled by pharmacy , despite rx availabl e per our records. New rx sent. Dusty will restart and have lab work done in one month. Recommen d continue active javier pepe Problem Code: E78.5; Problem Code Type: ICD-10; Not Available [facility] 3 04:27:01 Patient status finding 658671885 Active 201901/06/20 20 - Comments only - Sneha Albright CONTROL SYSTEMS ENG - Feeling well in general. No complain ts today. Refuses colonosc opy. I have encourag ed him to get a flu shot this fall. Check lipid panel, AST, ALT and BMP for hyperlip idemia and hyperten antoine. He is on a statin so will be get his liver enzymes. Follow-u p with any concerns . I would like to see him in 6 months for a hyperten antoine follow-u p. 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 Diplopia is intermit tent and per history and physical examinat ion there are no other findings concerni ng for central diplopia . Advised that Dusty follow up with his eye doctor within the week for a more comprehe nsive eye examinat ion. Discusse d with Dusty that he should f/u if diplopia changes or becomes persiste nt. Problem Code: H53.2; Problem Code Type: ICD-10; Not Available [facility] 3 04:27:01 Acute upper respirat ory infectio n 54171766 Completed 201706/13/2018 05/02/20 18 - Comments only - Iván Gardner PA-C - Suspect viral etiology . Recommen d symptoma tic care. Recheck if not improvin g in 1 more week. Sooner if worse. Possible postnasa l drip with cough. No focal bacteria l infectio n on exam. Vital signs are normal. Problem Code: J06.9; Problem Code Type: ICD-10; Not Available [facility] 3 04:27:01 Screenin g for malignan t neoplasm of colon Completed 202007/13/2021 07/06/20 21 - Comments only - Mirnahoa Saenz CONTROL SYSTEMS ENG - Declines colonosc opy, FIT test, Ifob Problem Code: Z12.11; Problem Code Type: ICD-10; Not Available [facility] 3 04:27:01 Viral screenin g Active 2021 Problem Code: Z11.59; Problem Code Type: ICD-10; Not Available [facility] 3 04:27:01 Adult health examinat ion Active 202101/03/20 22 - Comments only - Mirna Cotate [employer]OL SYSTEM[employer] ENG - Healthy active appearin g gentlema n in no distress . Vaccinat ions up to date, declines colonosc opy, declines PSA check. Given copy of [place] advanced directiv e paperwor k to take home and bring back. Encour ed continue healthy active lifestyl e staying social with friends and eating lots of vegetabl es. Problem Code: Z00.00; Problem Code Type: ICD-10; Not Available [facility] 3 04:27:02 Epigastr ic pain 66896166 Completed 201408/05/2017 Problem Code: R10.13; Problem Code Type: ICD-10; Not Available [facility] 3 04:27:02 Benign essentia l hyperten antoine 6802241 Completed 200404/17/2023 Problem Code: 401.1; Problem Code Type: ICD-9; Not Available [facility] 3 04:27:02 Dizzines s and giddines s 270718373 Completed 201801/06/2020 Problem Code: R42; Problem Code Type: ICD-10; Not Available [facility] 3 04:27:02 Impacted cerumen in left ear 21280217975 67635 Completed 201608/05/2017 Problem Code: H61.22; Problem Code Type: ICD-10; Not Available [facility] 3 04:27:02 Hypergly cemia 55782834 Active [address], [place], [address] , [facility] 4 09:48:51 Liver enzymes level above referenc e range 602839207 Active [address], [place], [address] , [facility] 4 10:07:28 Notes:*Problem Name: Family Hx. Sudden Mother, Sister *ICD-10 Codes: *Problem Status: inactive *Comments: *Note Date: 09/09/2009 *Problem Name: S/p Cataract Surgery R. Eye 05/23/10 *ICD-10 Codes: *Problem Status: inactive *Comments: *Note Date: 06/13/2010 *Problem Name: Family Hx. Sudden Mother, Sister *ICD-10 Codes: *Problem Status: inactive *Comments: *Problem Code Type: CPT *Note Date: 09/09/2009 *Problem Name: S/p Cataract Surgery R. Eye 05/23/10 *ICD-10 Codes: *Problem Status: inactive *Comments: *Problem Code Type: CPT *Note Date: 06/13/2010 Problem Notes None recorded. Procedures Surgical History None recorded. Imaging Results Imaging Date Name Status LastModified by Organization Details LastModified Time 06/23/2024 CT brain/head stroke protocol completed [address], [place], [address], 06/23/2024 19:16:41 06/23/2024 CT angio brain and neck completed [address] [place], [address], 07/07/2024 07:31:53 06/24/2024 xr chest 1 view completed [facility] [address] [place], [address], 06/24/2024 09:12:40 06/24/2024 MRI brain w/o contrast completed [address] [place], [address], 07/07/2024 07:33:30 06/24/2024 MRI brain w/o contrast completed [facility] [address] [place], [address], 06/24/2024 16:33:05 06/24/2024 trans-thoracic echocardiogram (TTE) (PROC) completed [address] [place], [address], 07/07/2024 07:34:41 Procedure Notes None recorded. Medical Equipment None Reported. Allergies Allergen ID Allergen Name Allergen Category Reaction Reaction Severity Criticality Documentation Date Start Date Code Code System Note Provider Name and Address Organization Details Recorded Time 33010 lisinopri l medicatio n cough moderate Not available 05/31/20232009 07193 RxNorm cough Aller gyCod e: '3140 76'; Aller gyNam e: 'LINSEY NOPRI L'; Aller gyCon ceptT ype: 'RX Norm' ; Not Available [facility] 3 16:07:13 69198 Vaccine product containin g only Clostridi um tetani antigen (medicina l product) medicatio n other Not available unabletoasse 02/11/2024 47710 2003 SNOMED arm swell ing MIRNA SAENZ, MEDICAL BILL PROCESSOR [address], [place], [address] , [facility] 4 08:16:40 Medications Name Sig Start Date Stop Date Status Note LastModified by Organization Details LastModified Time Augmentin 875 mg-125 mg tablet Take 1 tab by mouth twice daily. 06/11 completed Not Available Not Available Not Available atorvasta tin 80 mg tablet Take 1 tablet every day by oral route at bedtime. active Not Available Not Available No t Available Prilosec 20 mg capsule,d elayed release 1 qd 01/10 completed Not Available Not Available Not Available amlodipin e 2.5 mg tablet Take 1 tablet every day by oral route. 09/16 completed Not Available Not Available Not Available clopidogr el 75 mg tablet Take 1 tablet every day by oral route for 21 days. active Not Available Not Available No t Available amlodipin e 5 mg tablet TAKE ONE TABLET BY MOUTH EVERY DAY active Not Available Not Available No t Available aspirin 81 mg tablet,de layed release Take 1 tablet every day by oral route as directed . 2023 active per [facility] discharg e summary Not Available Not Available Not Available triamtere ne 37.5 mg-hydroc hlorothia zide 25 mg capsule TAKE ONE CAPSULE BY MOUTH EVERY DAY active Not Available Not Available No t Available simvastat in 20 mg tablet TAKE ONE TABLET BY MOUTH EVERY DAY 06/25 completed Dose increase d per [facility] discharg e summary Not Available Not Available Not Available lisinopri l 10 mg tablet 1 TAB QD 01/24 completed Not Available Not Available Not Available aspirin 81 mg tablet 1tab qd 2013 active Not Available Not Available Not Avai lable Augmentin 875 mg tablet 1 TAB twice daily 10/17 completed Not Available Not Available Not Available omeprazol e 20 mg tablet,de layed release Take 1 by mouth daily 04/19 completed Not Available Not Available Not Available potassium chloride ER 20 mEq tablet,ex tended release Take 1 tablet every day by oral route in the morning for 10 days. active Not Available Not Available No t Available Vitals Date Recorded Body height Oxygen saturation Oxygen saturation in Arterial blood by Pulse oximetry Heart rate Systolic blood pressure Diastolic blood pressure Provider Name and Address Organization Details Last Updated DateTime 4 172.72 cm 96 % 96 % 72 /min 144 mm[Hg] 76 mm[Hg] Donald Naylor RN [facility] 4 09:30:02 Date Recorded Systolic blood pressure Diastolic blood pressure Provider Name and Address Organization Details Last Updated DateTime 08/05/2023 14 mm[Hg] 80 mm[Hg] MIRNA SAENZ, JOEY [address], [place], [address], [facility] 08/05/2023 10:06:29 Date Recorded Body height Body mass index (BMI) Body weight Body temperature Respiratory rate Oxygen saturation Oxygen saturation in Arterial blood by Pulse oximetry Heart rate Systolic blood pressure Diastolic blood pressure Provider Name and Address Organization Details Last Updated DateTime 4 170.18 cm 25.3 kg/m2 85212.1 7 g 96.6 [degF] 18 /min 95 % 95 % 60 /min 126 mm[Hg] 66 mm[Hg] BRO ALFONSO LPN [facility] 08:09:43 Date Recorded Body height Body mass index (BMI) Body weight Body temperature Respiratory rate Oxygen saturation Oxygen saturation in Arterial blood by Pulse oximetry Heart rate Systolic blood pressure Diastolic blood pressure Provider Name and Address Organization Details Last Updated DateTime 172.72 cm 24.8 kg/m2 62262.6 6 g 97.2 [degF] 18 /min 98 % 98 % 76 /min 122 mm[Hg] 76 mm[Hg] BRO ALFONSO LPN [facility] 08:06:21 Social History Question Answer Notes LastModified by Organizat ion Details LastModified Time Tobacco Smoking Status Former Smoker BRO ALFONSO LPN [facility], [facility] 02/11/2024 08:10:54 When Did You Quit Smoking? 16+yearssinc elastcigaret te Information not available 02/11/2024 What Was The Date Of Your Most Recent Tobacco Screening? 07/07/2024 Information not available 07/07/2024 Do You Or Have You Ever Used Any Other Forms Of Tobacco Or Nicotine? No Information not available 02/11/2024 Sex: Male Functional Status None recorded. Mental Status None recorded. Family History Relationship Description Onset Age of this Age Resolved Age Notes LastModified by Organization Details LastModified Time Mother Family history of heart failure jason Not available 2022 03:52:37 Sister Family history of heart failure [email or web address] Not available 2022 03:52:37 Notes:*Problem: Family histo ry reviewed, no changes 09/12/09 Father of accidental in his 40s. Mother age 59, sudden . Has 2 sisters. One sister well with HLP. Another sister sudden at age 52. Medical History No medical history recorded. Immunizations Vaccine Type Date Status Note Provider Nam e and Address Organization Details Recorded Time COVID-19, mRNA, LNP-S, PF, mariya-sucrose, 30 mcg/0.3 mL 4 completed Donald Naylor RN null, [facility] 08/05/2023 11:17:17 Influenza, high-dose, quadrivalent, PF 4 completed Donald Naylor RN null, [facility] 08/05/2023 11:17:26 Pneumococcal conjugate PCV 13 6 completed Not Available [facility] 05/31/2023 04:05:32 Influenza, split virus, trivalent, preservative 5 completed Not Available [facility] 05/31/2023 04:05:32 Influenza, split virus, trivalent, preservative 6 completed Not Available [facility] 05/31/2023 04:05:32 Influenza, split virus, quadrivalent, preservative 7 completed Not Available [facility] 05/31/2023 04:05:33 Influenza, MDCK, quadrivalent, PF 9 completed Not Available [facility] 05/31/2023 04:05:33 Influenza, high-dose, quadrivalent, PF 2 completed Not Available [facility] 05/31/2023 04:05:33 Influenza, high-dose, quadrivalent, PF 1 completed Not Available [facility] 05/31/2023 04:05:33 Influenza, high-dose, quadrivalent, PF 0 completed Not Available [facility] 05/31/2023 04:05:33 COVID-19, mRNA, LNP-S, PF, 100 mcg/0.5mL dose or 50 mcg/0.25mL dose 1 completed Not Available [facility] 05/31/2023 04:05:33 COVID-19, mRNA, LNP-S, PF, 100 mcg/0.5mL dose or 50 mcg/0.25mL dose 1 completed Not Available [facility] 05/31/2023 04:05:34 COVID-19, mRNA, LNP-S, PF, 100 mcg/0.5mL dose or 50 mcg/0.25mL dose 1 completed Not Available [facility] 05/31/2023 04:05:34 COVID-19, mRNA, LNP-S, bivalent, PF, 30 mcg/0.3 mL dose 2 completed Not Available [facility] 05/31/2023 04:05:34 pneumococcal polysaccharide PPV23 8 completed Not Available [facility] 05/31/2023 04:05:34 Past Encounters Encounter ID Performer Location Encounter Start Date Encounter Closed Date Diagnosis/Indication Diagnosis SNOMED-CT Code Diagnosis ICD10 Code [id number] Donald Naylor RN [address] [address] 08/05/2023 09:21:01 08/05/2023 10:16:10 Essential hypertension 34433422 I10 Hyperlipidemia 88060953 E78.5 Liver enzy mes level above reference range 584726855 R74.8 Hyperglycemia 73721976 R 73.9 [id number] Keyana Hernandez [address] [address] 08/08/2023 07:58:36 08/08/2023 08:29:16 Liver enzymes level above reference range 662969963 R74.8 [id number] JOEY BECKFORD [address] [address] 02/11/2024 07:57:12 02/11/2024 08:28:28 Essential hypertension 76337360 I10 Hyperlipidemia 30116794 E78.5 Liver enzy mes level above reference range 606513544 R74.8 Health Concerns Section Related Observation LastModified by Organization Detai ls LastModified Time None Recorded Concern Status LastModified by Organization Details LastModified Time None Recorded Advance Directives Directive None Recorded Payers Encounter Date Sequence Insurance Name Policy Number Policy Medina Covered Member ID Medina Member ID Guarantor Name 08/05/2023 1 [facility]) [id number] Dusty Antoine Yung [id number] Dusty D Yung 08/08/2023 1 [facility]) [id number] Dusty D Yung [id number] Dusyt D Yung 02/11/2024 1 [facility]) [id number] Dusty D Yung [id number] Dusty Antoine Yung Notes Date Note Type Note Provider Name and Address Organization Details Recorded Time 4 text/html cc follow up HTN HTN - continues on amlodipine and Triamterene/HCTZ. Checks at home and generally runs lower then 140. No side effects from the amlodipine, no edema. Has been walking on his treadmill about a half mile most days. Had been going further then his back went out Hyperlipidemia - continues on simvastatin 20 mg Cholesterol was great 05/13 LDL 87 Total protein, glucose, and bilirubin were elevated with last lab check, due for recheck Donald Naylor RN null, [facility] 08/05/2023 11:13:59 4 text/html HyperlipidemiaReported bypatient.Notes:continues on statinHypertension F/UReported bypatient.Notes:Blood pressure is well controlled follow up chornic issues Generally feeling well Had COVID about two months ago, stayed home and isolated. Had a fever, chills and muscle aches. home test was positive. Was exposed on a Saturday and got sick on that Saturday. Frederick weak and lousy. Feels 100% improved Had elevated blood sugar but a1c was normal at 5.4 in July JOEY BECKFORD [address], [place], [address], [facility]. 02/11/2024 12:33:07
--- OUTSIDE RECORDS SUMMARY | 2024-07-07 08:47 | XMS_ITS | Encounter Summary ---
Author Organization [facility]ly [facility] [place] [address] Care Team Providers Care Credit Compliance Officer Name Role Phone Jim Eden MD Primary Care Provider Encounter Details Date Type Department Care Team (Late st Contact Info) Description 06/24/2024 Interpretation Only Radiology Library at [facility] [place] [phone] Jim Eden MD [address] [phone] Social History Tobacco Use Types Packs/Day Years [...] PM EST) 06/28/2024 1:56 AM EST Narrative [facility] 06/28/2024 1:56 AM EST This exam is auto-finalizing. It's purpose is for storage only. Jim Eden MD G FILM LIBRARY ORD ERABLES [facility] [place] documented in this encounter Visit Diagnoses Not on filedocumented in this encounter Care Teams Credit Compliance Officer Relationship Specialty Start Date End Date Jim Eden MD [address] [place] [id number] PCP - General 06/13/10 documented as of this encounter
--- OUTSIDE RECORDS SUMMARY | 2024-07-07 08:47 | XMS_ITS | Encounter Summary ---
Author Organization Formerly [facility] Address [facility] [place] [address] Care Team Providers Care Computer Installation Engineer Name Role Phone Jim Eden MD Primary Care Provider Encounter Details Date Type Department Care Team (Late st Contact Info) Description 06/24/2024 4:50 PM EST Telehealth notes only TeleHealth [facility] [place] [phone] Telehealth, Neurology None Social History Tobacco Use Types Packs/Day Years Used Date Smoking Tobacco: Never Assessed Sex and Gender Information Value Date Recorded Sex Assigned at Not on file Gender Identity Not on file Sexual Orientation Not on file documented as of this encounter Miscellaneous Notes * Consult Note - Rajwinder Maldonado MD - 06/24/2024 4:50 PM EST Follow-up phone call: I spoke with the on-call provider from [facility] inpatient service regarding Dusty Barragan who was seen yesterday at the emergency room and I underwent a phone on consultation with Dr. Disla regarding that patient who has been experiencing vertigo for over 48 hours, left sided head thrust positive on exam, with up beating rotational nystagmus, profound instability with gait, and mild GI symptoms. I suspected stroke rather than peripheral vertigo and requested full stroke workup. 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 The plan was to load him with aspirin and Plavix which was done and to advance atorvastatin upto 80 mg daily. Physical therapy will continue. No role for intervascular recanalization. The role of the left vertebral artery closure is questionable as the appearance seem to be chronic in the size of stroke is not compatible with acute full closure of the vertebral artery. Rajwinder Maldonado MD [facility] Tele-Neurology documented in this encounter Plan of Treatment Not on file documented as of this encounter Visit Diagnoses Not on filedocumented in this encounter Care Teams Computer Installation Engineer Relationship Specialty Start Date End Date Jim Eden MD [address] [place] [address] PCP - General 06/13/10 documented as of this encounter
--- OUTSIDE RECORDS SUMMARY | 2024-07-07 08:47 | XMS_ITS | Encounter Summary ---
Author Organization [facility] [place] [address] Care Team Providers Care Taker Off Braker Machine Name Role Phone Jim Eden MD Primary Care Provider Encounter Details Date Type Department Care Team (Late st Contact Info) Description 06/23/2024 9:40 PM EST Ancillary Procedure Radiology Library at [facility] [place] [phone] Jim Eden MD [address] [phone] Social History Tobacco Use Types Packs/Day Years [...] Associated Diagnosis Comments FILM LIBRARY STORAGE ONLY CT HEAD Routine 06/23/2024 9:39 PM EST documented in this encounter Results * Film Library- Storage Only CT Head (06/23/2024 9:39 PM EST) Narrative [facility] - 06/23/2024 9:39 PM EST This exam is auto-finalizing. It's purpose is for storage only. Jim Eden MD IMG FILM [facility]LES [facility] [place] documented in this encounter Visit Diagnoses Not on filedocumented in this encounter Care Teams Taker Off Braker Machine Relationship Specialty Start Date End Date Jim Eden MD [address] [place] [phone] PCP - General 06/13/10 documented as of this encounter
--- OUTSIDE RECORDS SUMMARY | 2024-07-07 08:47 | XMS_ITS | Encounter Summary ---
Author Organization [facility]ly [facility] Address [facility] [place] [address] Care Team Providers Care Sausage Machine Operator Name Role Phone Jim Eden MD Primary Care Provider Encounter Details Date Type Department Care Team (Late st Contact Info) Description 06/23/2024 9:45 PM EST Ancillary Procedure Radiology Library at [facility] [place] [phone] Jim Eden MD [address] [address] Social History Tobacco Use Types Packs/Day Years [...] Comments FILM LIBRARY STORAGE ONLY CT HEAD AND SPINE Routine 06/23/2024 9:40 PM EST documented in this encounter Results * Film Library- Storage Only CT Head And Spine (06/23/2024 9:40 PM EST) Narrative [facility] - 06/23/2024 9:40 PM EST This exam is auto-finalizing. It's purpose is for storage only. Jim Eden MD IMG FILM LIBRARY ORD ERABLES [facility] [place] documented in this encounter Visit Diagnoses Not on filedocumented in this encounter Care Teams Sausage Machine Operator Relationship Specialty Start Date End Date Jim Eden MD [address] [place], [place] [phone] PCP - General 06/13/10 documented as of this encounter
--- OUTSIDE RECORDS SUMMARY | 2024-07-07 08:47 | XMS_ITS | Encounter Summary ---
Author Organization [facility] Address [address] [place] [address] Care Team Providers Care Bull Driver Name Role Phone Joceline Vale MD Primary Care Provider [phone] Encounter Details Date Type Department Care Team (Late st Contact Info) Description 01/03/2022 Lab Requisition [facility] Pathology & Laboratory Medicine - [address] [id number] Outr Resulting Lab, Provider Social History Tobacco [...] RNA BY PCR Routine 01/02/2022 8:45 EDT documented in this encounter Results * HEPATITIS C AB W REFLEX TO HCV RNA BY PCR (01/02/2022 8:45 EDT) Hep C Antibody Negative Negative 01/04/2022 8:53 EDT [facility] Blood VENOUS BLOOD / Unknown 01/02/2022 8:45 EDT 01/03/2022 16:24 EDT us Provider Outr Resulting Lab CHEMISTRY & BLOOD GA S ORDERABLES Final Result [facility] [address] [place] [address] documented in this encounter Visit Diagnoses Not on filedocumented in this encounter Care Teams Bull Driver Relationship Specialty Start Date End Date Joceline Vale MD PCP - General 07/07/15 documented as of this encounter
--- OUTSIDE RECORDS SUMMARY | 2024-07-07 08:47 | XMS_ITS | Encounter Summary ---
Author Organization [facility] Address [address] [place] [address] Care Team Providers Care Dinkey Engine Firer Name Role Phone Unknown, Provider Primary Care Provider Unava ilable Encounter Details Date Type Department Care Team (Latest Contact Info) Description 07/04/2015 10:04 EST - 07/04/2015 23:59 EST Hospital Encounter [address] [id number] Unknown, ProviderMD Discharge Disposition: Home or Self Care Social History Tobacco Use Types Packs/Day Years Used Date Smoking Tobacco: Never Assessed Sex and Gender Information Value Date Recorded Sex Assigned at Not on file Legal Sex Male 17:31 EST Gender Identity Not on file Sexual Orientation Not on file documented as of this encounter Discharge Disposition Disposition Code Departure Means Destination Home or Self Detention documented in this encounter Plan of Treatment Not on file documented as of this encounter Visit Diagnoses Not on filedocumented in this encounter Care Teams Dinkey Engine Firer Relationship Specialty Start Date End Date Unknown, ProviderMD PCP - General 07/04/15 07/06/15 documented as of this encounter
[2024-07-07 20:28] LABS: Anion Gap 9.8 mmol/L (3-11); BUN 12 mg/dL (7-18); CO2 28.2 mmol/L (21.0-32.0); CREATININE 1.2 mg/dL (0.70-1.30); Calcium 9.3 mg/dL (8.5-10.1); Chloride 103 mmol/L (98-107); Estimated GFR 62.67 (mL/min/1.73m2); Glucose 107 mg/dL (74-106); Potassium 3.7 mmol/L (3.5-5.1); Sodium 141 mmol/L (136-145)
== END 2024-07-07 08:45 | disposition home or self-care (01) ==
LOC: NCHCN 08:44
PROVIDERS: PCP Physician Assistant Medical; Visit Provider Nurse Practitioner Family
DX: E87.6 Hypokalemia (principal)
CPT/HCPCS: 80048